=== PATIENT | female | born 1975 | race Caucasian/White ===

== ENCOUNTER 2016-11-19 08:11 | Emergency (ER) | payer OTHER ==
[2016-11-19 08:29] VITALS: TEMP 98
[2016-11-19] MEDS ORDERED: DIAZEPAM 10 MG/2 ML SYR IVP ONE (08:45)
[2016-11-19] MEDS ORDERED: NS 1,000 ML IV ONE (08:45)
--- NOTE | 2016-11-19 08:45 | UCPHY ---
H & P Patient Type: New Chief Complaint Nursing Narrative: c/o 1 wk of dizzyness/CARTY on and off Nausea Time Seen by Provider: 11/19/16 08:34 HPI/ROS: Chief Complaint: Dizziness, nausea, fatigue HPI: 41-year-old type 2 diabetic who is not been compliant with her metformin for the last month is presenting with a week of nausea, dizziness, general fatigue, mild headache. Patient states that the nausea and dizziness is worse when she changes position or moves her head. Is not worsened by being in any position. Has not vomited. No fevers or chills. Has had a mild waxing waning headache. Did not hit her head. No abdominal pain. No cough, no shortness of breath. No chest pain. No increased urination or burning with urination. Patient states she is not compliant with her metformin because the pills are difficult for her to swallow. ROS: 10 point Review of Systems is negative except as noted in the HPI. PMH: Type 2 diabetes Medications: Metformin (noncompliant) Allergies: Amoxicillin Social History: No smoking, no alcohol, no recreational drug use Family History: non-contributory Physical Exam: Gen: Awake, Alert, No Distress HEENT: Nose: no rhinorrhea Eyes: PERRLA, EOMI Mouth: Moist mucosa Neck: Supple, no JVD Chest: nontender, lungs clear to auscultation Heart: S1, S2 normal, no murmur Abd: Soft, non-tender, no guarding Back: no CVA tenderness, no midline tenderness Ext: no edema, non-tender Skin: no rash Neuro: CN II-XII intact, Sensation grossly intact, Strength 5/5 in bilateral upper and lower extremities - Personal History LMP (Females 10-55): Over 28 Days Ago Current Tetanus Diphtheria and Acellular Pertussis (TDAP): Yes - Medical/Surgical History Other PMH: denies - Family History Significant Family History: No pertinent family hx - Social History Smoking Status: Never smoked Constitutional: Initial Vital Signs Temperature (C) 36.6 C 11/19/16 08:26 Heart Rate 78 11/19/16 08:26 Respiratory Rate 18 11/19/16 08:26 Blood Pressure 137/90 H 11/19/16 08:26 O2 Sat (%) 97 11/19/16 08:26 O2 Delivery Mode Room Air Allergies/Adverse Reactions: No Known Allergies Allergy (Unverified 11/19/16 08:26) Home Medications: Medication Instructions Recorded Meclizine HCl [Meclizine HCl 12.5 12.5 mg PO BID PRN #10 tab 11/19/16 mg (*)] Metformin HCl 11/19/16 Medical Decision Making ED Course/Re-evaluation: CBC shows a mild anemia, blood sugars elevated at 174 she is not acidotic. Urinalysis is negative. She is not . She is improved after some diazepam and ondansetron remainder fluids. She has passed a p.o. challenge. I have encouraged her to restart taking her metformin. Will send her home with some meclizine as well. Symptoms are consistent with a peripheral vertigo. Will follow up with her physician at [facility] in 2-4 days if symptoms are not improving. - Data Points Laboratory Results: Laboratory Results 11/19/16 09:00 11/19/16 09:00 11/19/16 11/19/16 11/19/16 09:35 09:35 09:00 WBC RBC Hgb Hct MCV MCH MCHC RDW Plt Count MPV Neut % (Auto) Lymph % (Auto) Woods % (Auto) Eos % (Auto) Baso % (Auto) Nucleat RBC Rel Count Absolute Neuts (auto) Absolute Lymphs (auto) Absolute Monos (auto) Absolute Eos (auto) Absolute Basos (auto) Absolute Nucleated RBC Immature Gran % Immature Gran # Platelet Estimate Hypochromasia Microcytic Cells Smear Review By Sodium 138 mEq/L mEq/L (134-144) Potassium 4.4 mEq/L mEq/L (3.5-5.2) Chloride 101 mEq/L mEq/L (97-110) Carbon Dioxide 22 mEq/l mEq/l (22-31) Anion Gap 15 mEq/L mEq/L (8-16) BUN 11 mg/dL mg/dL (7-23) Creatinine 0.5 mg/dL L mg/dL (0.6-1.0) Estimated GFR > 60 Glucose 174 mg/dL H mg/dL (70-100) Calcium 9.0 mg/dL mg/dL (8.5-10.4) Urine Color YELLOW Urine Appearance HAZY Urine pH 6.0 (5.0-7.5) Ur Specific [place] >= 1.030 (1.002-1.030) Urine Protein NEGATIVE (NEGATIVE) Urine Ketones NEGATIVE (NEGATIVE) Urine Blood NEGATIVE (NEGATIVE) Urine Nitrate NEGATIVE (NEGATIVE) Urine Bilirubin NEGATIVE (NEGATIVE) Urine Urobilinogen 0.2 EU EU (0.2-1.0) Ur Leukocyte Esterase NEGATIVE (NEGATIVE) Urine Glucose NEGATIVE (NEGATIVE) Urine Test NEGATIVE 11/19/16 09:00 WBC 8.96 10^3/uL 10^3/uL (3.80-9.50) RBC 4.73 10^6/uL 10^6/uL (4.18-5.33) Hgb 9.9 g/dL L g/dL (12.6-16.3) Hct 32.4 % L % (38.0-47.0) MCV 68.5 fL L fL (81.5-99.8) MCH 20.9 pg L pg (27.9-34.1) MCHC 30.6 g/dL L g/dL (32.4-36.7) RDW 18.0 % H % (11.5-15.2) Plt Count 452 10^3/uL H 10^3/uL (150-400) MPV 9.1 fL fL (8.7-11.7) Neut % (Auto) 81.8 % H % (39.3-74.2) Lymph % (Auto) 11.4 % L % (15.0-45.0) Woods % (Auto) 5.1 % % (4.5-13.0) Eos % (Auto) 0.6 % % (0.6-7.6) Baso % (Auto) 0.7 % % (0.3-1.7) Nucleat RBC Rel Count 0.0 % % (0.0-0.2) Absolute Neuts (auto) 7.33 10^3/uL H 10^3/uL (1.70-6.50) Absolute Lymphs (auto) 1.02 10^3/uL 10^3/uL (1.00-3.00) Absolute Monos (auto) 0.46 10^3/uL 10^3/uL (0.30-0.80) Absolute Eos (auto) 0.05 10^3/uL 10^3/uL (0.03-0.40) Absolute Basos (auto) 0.06 10^3/uL 10^3/uL (0.02-0.10) Absolute Nucleated RBC 0.00 10^3/uL 10^3/uL (0-0.01) Immature Gran % 0.4 % % (0.0-1.1) Immature Gran # 0.04 10^3/uL 10^3/uL (0.00-0.10) Platelet Estimate INCREASED H (ADEQ) Hypochromasia 2+ H Microcytic Cells 1+ H Smear Review By Pending Sodium Potassium Chloride Carbon Dioxide Anion Gap BUN Creatinine Estimated GFR Glucose Calcium Urine Color Urine Appearance Urine pH Ur Specific [place] Urine Protein Urine Ketones Urine Blood Urine Nitrate Urine Bilirubin Urine Urobilinogen Ur Leukocyte Esterase Urine Glucose Urine Test Medications Given: Discontinued Medications Diazepam (Valium Injection) 5 mg IVP EDNOW ONE Stop: 11/19/16 08:46 Last Admin: 11/19/16 09:07 Dose: 5 mg Sodium Chloride (Ns) 1,000 mls @ 0 mls/hr IV ONCE ONE PRN Reason: Wide Open Stop: 11/19/16 08:46 Last Admin: 11/19/16 09:08 Dose: 1,000 mls Departure - Departure Disposition: Home, Routine, Self-Care Clinical Impression: Vertigo, Hyperglycemia, Dehydration Condition: Good Instructions: Vertigo (ED), Diabetic Hyperglycemia (ED) Additional Instructions: Please resume taking her metformin as prescribed. You may take meclizine as needed for dizziness. Follow up with your physician at [facility] in 3-4 days if symptoms are not improving. Referrals: [facility],. [Primary Care Provider] - As per Instructions Prescriptions: Meclizine HCl [Meclizine HCl 12.5 mg (*)] 12.5 mg PO BID PRN #10 tab PRN Reason: Dizziness - PQRS PQRS Measurement: NA
[2016-11-19 09:06] LABS: % IMMATURE GRANULYOCYTES 0.4 % (0.0-1.1); ABSOLUTE IMMATURE GRANULOCYTES 0.04 10^3/uL (0.00-0.10); ADD DIFF? NO; ADD MORPH? YES; ADD SCAN? NO; ATYPICAL LYMPHOCYTE FLAG 0 (0-99); FRAGMENT RBC FLAG 20 (0-99); HEMATOCRIT 32.4 % (38.0-47.0); HEMOGLOBIN 9.9 g/dL (12.6-16.3); LEFT SHIFT FLG 0 (0-99); LIPEMIA HEMOLYSIS FLAG 80 (0-99); MEAN CELL HEMOGLOBIN 20.9 pg (27.9-34.1); MEAN CELL HEMOGLOBIN CONCENTR. 30.6 g/dL (32.4-36.7); MEAN PLATELET VOLUME 9.1 fL (8.7-11.7); PLATELET CLUMPS FLAG 10 (0-99); PLATELET COUNT 452 10^3/uL (150-400); RED BLOOD CELL COUNT 4.73 10^6/uL (4.18-5.33)
[2016-11-19 09:17] LABS: MEAN CELL VOLUME 68.5 fL (81.5-99.8)
[2016-11-19 09:24] LABS: ANION GAP 15 mEq/L (8-16); CARBON DIOXIDE 22 mEq/l (22-31); CHLORIDE 101 mEq/L (97-110); CREATININE 0.5 mg/dL (0.6-1.0); GLOMERULAR FILTRATION RATE > 60; GLUCOSE 174 mg/dL (70-100); POTASSIUM 4.4 mEq/L (3.5-5.2); SODIUM 138 mEq/L (134-144)
[2016-11-19 09:47] LABS: COLOR YELLOW; LEUKOCYTE ESTERASE,URINE NEGATIVE (NEGATIVE); NITRITE,URINE NEGATIVE (NEGATIVE)
[2016-11-19 10:19] LABS: HYPOCHROMIA 2+; MICROCYTES 1+
[2016-11-19 10:21] LABS: PLATELET ESTIMATE INCREASED (ADEQ)
[2016-11-19 10:50] VITALS: RESP 16
[2016-11-19 12:04] VITALS: BP 119/82; PULSE 73; O2SAT 97
== END 2016-11-19 11:50 | disposition home or self-care (01) ==
LOC: CED 08:11
DX: R42 Dizziness and giddiness (principal); E11.65 Type 2 diabetes mellitus with hyperglycemia
CPT/HCPCS: 80048-PO; 81003-PO; 81025-PO; 85025-PO; 96361-PO; 96374-PO; 99204-PO; G0463-PO

== ENCOUNTER 2018-12-16 12:56 | Emergency (ER) | payer OTHER ==
--- NOTE | 2018-12-16 13:04 | EDPHY ---
H & P Time Seen by Provider: 12/16/18 13:04 HPI/ROS: CHIEF COMPLAINT: Left abdominal pain after falling HISTORY OF PRESENT ILLNESS: This is a 43-year-old female in general good health who presents after falling at work yesterday. She fell from standing position onto her left side. Initially she had left leg pain but this has resolved. She now reports left-sided abdominal pain that is worse with deep breaths and walking. She did not strike her head with this fall and does not have headache. She does not have neck or back pain. She denies ribcage pain. A time she is pointing to her left hip and pelvis when localizing and pains and at other times to her left abdomen. She has not had nausea or vomiting. No urinary symptoms/dysuria. She has been taking Tylenol and ibuprofen for pain. Her last dose was 3 hr ago, she is not sure what medication she took at that time. She is not on blood thinners. REVIEW OF SYSTEMS: A ten system review of systems was performed and is negative with the exception of the items mentioned in the HPI. Past medical history: Diabetes type 2, hyperlipidemia Past surgical history: Noncontributory Social history: She is here with her son. She is . She does not use tobacco products. 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 General Appearance: Alert. Vital signs reviewed. Eyes: Pupils equal and round, no conjunctival injection, no discharge. Anicteric. ENT, Mouth: Mucous membranes are moist, no oropharyngeal erythema or edema. Neck: Nontender to palpation over the cervical spine in the midline. No pain with active range of motion of her neck. Thorax: Nontender to palpation of the rib cage, no crepitus. Respiratory: Lungs are clear to auscultation; no wheezes, rales, or rhonchi. Cardiovascular: Regular rate and rhythm; no murmur, rub, or gallop. Gastrointestinal: Abdomen is obese, soft with tenderness overlying the spleen and left lower quadrant, no guarding no masses or organomegaly, bowel sounds normal. Skin: Warm and dry, no rashes on exposed skin, normal color. Back: Nontender to palpation over the thoracolumbar spine. No CVAT. Extremities: No pain with palpation of the left hip and no pain with full active and passive range of motion of her left hip, knee, and ankle. Pelvis is stable. No lower extremity edema, no calf tenderness or swelling. Neurological: Alert and oriented. Moving all four extremities easily and equally. Psychiatric: Normal affect. - Medical/Surgical History Other PMH: denies - Social History Smoking Status: Never smoked Constitutional: Initial Vital Signs Temperature (C) 36.9 C 12/16/18 13:05 Heart Rate 80 12/16/18 13:05 Respiratory Rate 16 12/16/18 13:05 Blood Pressure 158/98 H 12/16/18 13:05 O2 Sat (%) 97 12/16/18 13:05 O2 Delivery Mode Room Air Allergies/Adverse Reactions: amoxicillin Allergy (Verified 12/16/18 13:08) Pt reports rash Home Medications: Medication Instructions Recorded Metformin HCl 11/19/16 Pravastatin Sodium 12/16/18 Medical Decision Making - Diagnostics Imaging Results: Imaging Impressions Abdomen CT 12/16/18 13:19 Impression: 1. No evidence of abdominal or pelvic hemorrhage, organ laceration, or fractures. 2. No acute findings. Findings and recommendations discussed with Emergency Department physician, Renea Cloud at 1410 hour, 12/16/2018. Final report concurs with initial preliminary interpretation. ED Course/Re-evaluation: It was initially thought that she had left hip pain, but at the time of my exam I do not appreciate any bony tenderness involving the left hip, pelvis, or lower extremity. However, she does have some tenderness with palpation of the left abdomen in the region of the spleen in the left lower quadrant. No guarding. Will obtain CT scan to assess for splenic or other injury. It seems unlikely that the mechanism of falling from a standing position to the ground would have caused intra-abdominal injury. However, she has been having worsening pain since her initial fall and I feel that it warrants investigation. She is noted to be hypertensive at triage. Will advise follow-up with her PCP. CT scan of the abdomen and pelvis reviewed by me. I discussed the results with Dr. Grant. The study is negative for any evidence of acute injury. Pelvis and hip bones are readily visualized and are without fracture. Results relayed to patient. Symptomatic treatment advised. She will follow-up with workman's comp as instructed by her employer. She will continue with Tylenol and Advil. Differential Diagnosis: I considered a differential diagnosis that includes but is not limited to rib fracture, pneumothorax, intra-abdominal injury including splenic injury, pelvis or hip fracture, hip dislocation, and contusion. - Data Points Laboratory Results: 12/16/18 13:37 POC Hgb 11.6 gm/dL L gm/dL (12.6-16.3) POC Hct 34 % L % (38-47) POC Sodium 139 mEq/L mEq/L (135-145) POC Potassium 3.6 mEq/L mEq/L (3.3-5.0) POC Chloride 105 mEq/L mEq/L (97-110) POC Total CO2 22 mEq/L mEq/L (22-31) POC BUN 6 mg/dL L mg/dL (7-23) POC Creatinine 0.5 mg/dL L mg/dL (0.6-1.0) POC Glucose 116 mg/dL H mg/dL (70-100) Point of Care Test Results: Chemistry 12/16/18 13:37 POC Sodium 139 mEq/L mEq/L (135-145) POC Potassium 3.6 mEq/L mEq/L (3.3-5.0) POC Chloride 105 mEq/L mEq/L (97-110) POC Total CO2 22 mEq/L mEq/L (22-31) POC BUN 6 mg/dL L mg/dL (7-23) POC Creatinine 0.5 mg/dL L mg/dL (0.6-1.0) POC Glucose 116 mg/dL H mg/dL (70-100) ISTAT H&H 12/16/18 13:37 POC Hgb 11.6 gm/dL L gm/dL (12.6-16.3) POC Hct 34 % L % (38-47) Departure - Departure Disposition: Home, Routine, Self-Care Clinical Impression: Contusion Qualifiers: Encounter type: initial encounter Contusion area: abdominal wall Qualified Code (s): S30.1XXA - Contusion of abdominal wall, initial encounter Condition: Good Instructions: Contusion in Adults (ED) Additional Instructions: Adult Pain & Fever Control: We recommend Acetaminophen (Tylenol) and Ibuprofen (Motrin,Advil) for pain and fever control. When fever is high or pain severe, both drugs can be used at the same time, but at different intervals. Please note the time differences. Your dose is: Acetaminophen 650mg every 4 to 6 hours Ibuprofen 400mg every 6 hours with food OR Note: do not take Acetaminophen with Hydrocodone (Vicodin, Lortab) or Oycodone (Percocet). These medications also contain Acetaminophen. No more than 3000mg of Acetaminophen should be taken in 24 hours (for an adult). Alternate between Tylenol and Advil. Keep track of which medicine you take and what time you take it. Referrals: [facility] [Primary Care Provider] - As per Instructions Stand Alone Forms: Work Comp Follow Up, Work Excuse
[2018-12-16] MEDS ORDERED: IOPAMIDOL (ISOVUE-300) 100 ML BTL ONE (13:51)
[2018-12-16 14:31] VITALS: BP 126/78
== END 2018-12-16 14:27 | disposition home or self-care (01) ==
LOC: CED 12:56
DX: S30.1XXA Contusion of abdominal wall, initial encounter (principal); E11.9 Type 2 diabetes mellitus without complications; W19.XXXA Unspecified fall, initial encounter; Y99.0 Civilian activity done for income or pay
CPT/HCPCS: 74177-PO; 82435-PO; 82565-PO; 82947-PO; 84132-PO; 84295-PO; 84520-PO; 85014-ER; 99285-ER; Q9967